=== PATIENT | female | born 1970 | race Caucasian/White ===

== ENCOUNTER 2018-04-23 22:17 | Emergency (ER) | payer OTHER ==
[~2018-04-23] VITALS: Ht 165.1 cm; Wt 70.5 kg
[2018-04-23 22:33] VITALS: Ht 165.1 cm; Wt 70.5 kg
[2018-04-23] MEDS ORDERED: SOD CHLORIDE 0.9% 500 ML IV STA (23:32)
--- NOTE | 2018-04-24 01:24 | ERD ---
ER Documentation Chief Complaint Chief Complaint dizziness, palpitations s/p ingesting trazadone tonight HPI This is a very pleasant 47-year-old female with dizziness and palpitations status post ingesting trazodone for the first time tonight. Denies fevers chills nausea vomiting. Upon arrival says she feels better, she is never had this before. Denies any chest pain. Denies any focal neurologic complaints. Denies any current issues. ROS All systems reviewed and are negative except as per history of present illness. 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 Neck: Full range of motion. No meningismus. Resp: Clear to auscultation bilaterally Cardio: Regular rate and rhythm, no murmurs Abd: Soft, non tender, non distended. Normal bowel sounds Skin: No petechiae or rashes Back: No midline or flank tenderness Ext: No cyanosis, or edema Neur: Awake and alert Psych: Normal Mood and Affect Result Diagram: 04/24/18 0013 04/24/18 0013 Results 24 hrs Laboratory Tests Test 04/24/18 00:13 04/24/18 00:23 White Blood Count 7.7 10^3/ul Red Blood Count 4.21 10^6/ul Hemoglobin 12.6 g/dl Hematocrit 37.3 % Mean Corpuscular Volume 88.6 fl Mean Corpuscular Hemoglobin 29.9 pg Mean Corpuscular Hemoglobin Concent 33.8 g/dl Red Cell Distribution Width 12.1 % Platelet Count 314 10^3/UL Mean Platelet Volume 9.1 fl Immature Granulocytes % 0.300 % Neutrophils % 66.9 % Lymphocytes % 21.0 % Monocytes % 7.8 % Eosinophils % 3.6 % Basophils % 0.4 % Nucleated Red Blood Cells % 0.0 /100WBC Immature Granulocytes # 0.020 10^3/ul Neutrophils # 5.2 10^3/ul Lymphocytes # 1.6 10^3/ul Monocytes # 0.6 10^3/ul Eosinophils # 0.3 10^3/ul Basophils # 0.0 10^3/ul Nucleated Red Blood Cells # 0.0 10^3/ul Sodium Level 138 mmol/L Potassium Level 4.3 mmol/L Chloride Level 103 mmol/L Carbon Dioxide Level 25 mmol/L Anion Gap 10 Blood Urea Nitrogen 18 mg/dl Creatinine 0.69 mg/dl Est Glomerular Filtrat Rate mL/min > 60 mL/min Glucose Level 107 mg/dl Calcium Level 9.1 mg/dl Troponin I < 0.012 ng/ml POC Beta HCG, Qualitative NEGATIVE Current Medications Medications Dose Sig/Alvin Start Time Status Last (Trade) Ordered Route PRN Stop Time Admin Dose Reason Admin Sodium 500 ml @ Q1H STAT 04/23/18 DC 04/24/18 Chloride 500 mls/hr IV 23:32 04/24/18 00:28 00:31 Procedures/MDM EKG: Rate/Rhythm: [Normal Sinus Rhythm] QRS, ST, T-waves: [No changes consistent w/ acute ischemia] Impression: [No evidence of ischemia or arrhythmia] Chest X-ray 1V Interpreted by me: Soft Tissue: No acute abnormalities Bones: No acute abnormalities Mediastinum/Cardiac Silhouette/Lungs: [No acute abnormalities] Medical decision making: Very pleasant patient essentially medication side effect. At this point clinically stable. I told her to discontinue trazodone until she follows with her PCP. She was taking this for insomnia. Follow-up with PCP. Return for any worsening symptoms. Departure Diagnosis: Primary Impression: Dizziness Condition: Stable ADOLFO HNANON ShayChris Apr 24, 2018 01:24
[2018-04-24 01:42] VITALS: BP 101/53; PULSE 91; RESP 19
== END 2018-04-24 01:45 | disposition home or self-care (01) ==
LOC: E/R 22:17
DX: R42 Dizziness and giddiness (principal); R40.2142 Coma scale, eyes open, spontaneous, at arrival to emergency department; R40.2362 Coma scale, best motor response, obeys commands, at arrival to emergency department; R40.2252 Coma scale, best verbal response, oriented, at arrival to emergency department
CPT/HCPCS: 36415; 71045; 80048; 81025; 84484; 85025; 93005; J7040; Z7502